=== PATIENT | male | born 1940 | race Caucasian/White ===

== ENCOUNTER → 2017-02-05 | Outpatient (CLI) | payer MEDICARE, BC ==
[2017-02-05 22:34] LABS: BASO % 0.4 % (0.0-1.0); EOS # 0.3 K/mm3 (0.0-0.50); EOS % 3.8 % (0.0-3.0); LARGE UNSTAINED CELL # 0.1 K/mm3 (0.0-0.4); LYMPH # 1.3 K/mm3 (1.5-4.5); MEAN CORPUSCULAR HEMOGLOBIN 31.5 pg (27.0-33.0); MEAN CORPUSCULAR HGB CONC 33.2 g/dl (32.0-36.5); MONO # 0.5 K/mm3 (0.0-0.8); MONO % 5.6 % (0.0-5.0); NEUTROPHILS % 74.3 % (36.0-66.0); PLATELET COUNT, AUTOMATED 290 k/mm3 (150-450); WHITE BLOOD COUNT 8.1 K/mm3 (4.0-10.0)
[2017-02-05 22:50] LABS: CONTROL LINE MONO INT CTR LINE PRESENT
[2017-02-05 22:58] LABS: ALBUMIN 3.1 GM/DL (3.2-5.2); ALBUMIN/GLOBULIN RATIO 0.94 (1.00-1.93); ALKALINE PHOSPHATASE 117 U/L (45-117); ALT/SGPT 39 U/L (12-78); ANION GAP 7 MEQ/L (8-16); AST/SGOT 24 U/L (15-37); BILIRUBIN,TOTAL 0.5 MG/DL (0.2-1.0); BLOOD UREA NITROGEN 20 MG/DL (7-18); CALCIUM LEVEL 8.8 MG/DL (8.8-10.2); CARBON DIOXIDE LEVEL 31 MEQ/L (21-32); CHLORIDE LEVEL 102 MEQ/L (98-107); CREATININE FOR GFR 0.66 MG/DL (0.70-1.30); GLOMERULAR FILTRATION RATE > 60.0 (>42); GLUCOSE, FASTING 110 MG/DL (83-110); POTASSIUM SERUM 4.4 MEQ/L (3.5-5.1); SODIUM LEVEL 140 MEQ/L (136-145); TOTAL PROTEIN 6.4 GM/DL (6.4-8.2)
[2017-02-08 00:06] LABS: Lyme Disease IgG/IgM Antibodie <0.91 ISR (0.00-0.90); Lyme Disease IgM Ab Quantitati <0.80 index (0.00-0.79)
== END ==
LOC: M LAB 21:52
PROVIDERS: ATTEND Physician Assistant
DX: R53.83 Other fatigue (principal)

== ENCOUNTER 2017-07-24 14:43 | Emergency (ER) | payer MEDICARE, BC ==
[2017-07-24] MEDS: NAPROXEN 250 MG TAB PO (17:00)
== END 2017-07-24 17:16 | disposition home or self-care (01) ==
LOC: M ED 14:43
DX: S50.02XA Contusion of left elbow, initial encounter (principal); S20.219A Contusion of unspecified front wall of thorax, initial encounter; W00.1XXA Fall from stairs and steps due to ice and snow, initial encounter; Y92.830 Public park as the place of occurrence of the external cause
CPT/HCPCS: 73080

== ENCOUNTER 2021-05-26 16:13 | Emergency (ER) | payer MEDICARE, BC ==
[~2021-05-26] VITALS: Ht 182.9 cm; Wt 87.5 kg
[~2021-05-26 16:13] MED LIST: HYDR-3715 PO
[2021-05-26 16:14] VITALS: BP 127/60
--- OUTSIDE RECORDS SUMMARY | 2021-05-26 16:22 | CCD ---
Author Author [facility] Address Unknown Phone Unavailable Support Name Relationship Address Phone Dorcas Fournier Next Of Kin [address] [place] [address] DORCAS OSMAN Next Of Kin Unknown Unavailable RE Next Of Kin Unknown Unavailable DORCAS AGARWAL Next Of Kin [address] [place] [address] Dorcas Agarwal ECON Unknown [phone] Re-disclosure Warning The records that you are about to access may contain information from federally-assisted alcohol or drug abuse programs. If such information is present, then the following federally mandated warning applies: This information has been disclosed to you from records protected by federal confidentiality rules (42 CFR part 2). The federal rules prohibit you from making any further disclosure of this information unless further disclosure is expressly permitted by the written consent of the person to whom it pertains or as otherwise permitted by 42 CFR part 2. A general authorization for the release of medical or other information is NOT sufficient for this purpose. The Federal rules restrict any use of the information to criminally investigate or prosecute any alcohol or drug abuse patient.The records that you are about to access may contain highly sensitive health information, the redisclosure of which is protected by Article 27-F of the [facility] Public Health law. If you continue you may have access to information: Regarding HIV / AIDS; Provided by facilities licensed or operated by the [facility] Office of Mental Health; or Provided by the [facility] Office for People With Developmental Disabilities. If such information is present, then the following [facility] mandated warning applies: This information has been disclosed to you from confidential records which are protected by state law. State law prohibits you from making any further disclosure of this information without the specific written consent of the person to whom it pertains, or as otherwise permitted by law. Any unauthorized further disclosure in violation of state law may result in a fine or senior care sentence or both. A general authorization for the release of medical or other information is NOT sufficient authorization for further disc losure. Family History Family Member Name Family Member Gender Family Member Status Date o f Status Description Data Source(s) Unknown Unknown Problem [facility] ([facility], ) Immunizations Vaccine Date Status Description Data Source(s) COVID-19 VACC, MRNA(PFIZER)/PF 04/01/2021 12:00:00 AM EDT completed [facility] No Information Insurance Providers Payer name Policy type / Coverage type Policy ID Covered constitution party ID Covered constitution party's relationship to kaur Policy Kaur Plan Information MEDICARE [facility] [id number] S [id number] 9A MEDICARE MCA [id number] S [id number] 9A [facility] P [id number] SELF [id number] Medicare C [id number] SELF [id number] A29 [facility] B [id number] MYY [id number] MEDICARE C [id number] S [id number] A [facility] 190/690 [id number] SP [id number] MEDICARE [id number] SP [id number] A [facility] Medigap Part B [id number] Self [id number] [place] Medicare Primary [id number] Self [id number] Medicare C [id number] SELF [id number] [id number] Medicare [place] Medicare Primary [id number] Self [id number] BC/R [facility] B [id number] S MY [id number] O UNAVAILABLE UNAVAILA BLE UNAVAILABLE UNAVAILA BLE [facility] [id number] S [id number] Blue Cross Blue Shield P [id number] SELF [id number] [facility] [id number] Self [id number] Problems, Conditions, and Diagnoses No Information Surgeries/Procedures No Information Results No Information Social History No Information
[2021-05-26] MEDS ORDERED: LATA0.0015 (16:29)
[2021-05-26] MEDS ORDERED: ATOR1TAB21 (16:29)
--- OUTSIDE RECORDS SUMMARY | 2021-05-27 00:01 | CCD ---
Author Author [facility] Organization [facility] Address Unknown Phone Unavailable Support Name Relationship Address Phone Dorcas Fournier Next Of Kin [address] [place] [address] DORCAS OSMAN Next Of Kin Unknown Unavailable RE Next Of Kin Unknown Unavailable DORCAS AGARWAL Next Of Kin [address] [place] [address] Dorcas Agarwal ECON Unknown [phone] Re-disclosure Warning The records that you are [...] is protected by Article 27-F of the [facility] Public Health law. If you continue you may have access to information: Regarding HIV / AIDS; Provided by facilities licensed or operated by the [facility] Office of Mental Health; or Provided by the [facility] Office for People With Developmental Disabilities. If such information is present, then the following [facility] mandated warning applies: This information has been [...] law may result in a fine or group home sentence or both. A general authorization for the release of medical or other information is NOT sufficient authorization for further disc losure. Family History Family Member Name Family Member Gender Family Member Status Date o f Status Description Data Source(s) Unknown Unknown Problem [facility]ENT ([facility], ) Immunizations Vaccine Date Status Description Data Source(s) COVID-19 VACC, MRNA(PFIZER)/PF 04/01/2021 12:00:00 AM EDT completed [facility] Medic[facility] No Information Insurance Providers Payer name Policy type / Coverage type Policy ID Covered republican ID Covered republican's relationship to kaur Policy Kaur Plan Information MEDICARE [facility] [id number] S [id number] 9A MEDICARE MCA [id number] S [id number] 9A [facility] P [id number] SELF [id number] Medicare C [id number] SELF [id number] A29 [facility] [id number] S MYY [id number] MEDICARE C [id number] S [id number] A [facility] Medigap Part B [id number] Self [id number] [facility] 190/690 [id number] SP [id number] [facility] [facility] Medigap Part B [id number] Self [id number] Medicare [place]/[facility] Medicare Primary [id number] Self [id number] BC/[facility] [id number] S MY [id number] O UNAVAILABLE UNAVAILA BLE UNAVAILABLE UNAVAILA BLE [facility] HE[facility] [id number] S [id number] Medicare [place]/[facility] Medicare Primary [id number] Self [id number] MEDICARE [id number] A [facility] P [id number] SELF [id number] Medicare C [id number] SELF [id number] Problems, Conditions, and Diagnoses No Information Surgeries/Procedures No Information Results No Information Social History No Information
== END 2021-05-27 00:09 | disposition left against medical advice (07) ==
LOC: M ED 16:13
DX: Z53.29 Procedure and treatment not carried out because of patient's decision for other reasons (principal)